=== PATIENT | male | born 1980 | race Caucasian/White ===

== ENCOUNTER 2020-06-02 22:43 | Observation (INO) ==
[2020-06-02] MEDS ORDERED: TERBUTALINE 1 MG/ML VIAL SQ ONE (22:53)
[2020-06-02] MEDS ORDERED: 0.9 % SODIUM CHLORIDE 2,000 ML IV ONE (22:53)
[2020-06-02] MEDS ORDERED: LEVOFLOXACIN 750 MG/150 ML BAG IV ONE (22:53)
[2020-06-02] MEDS ORDERED: LEVALBUTEROL 1.25 MG/3 ML AMPUL.NEB NEB ONE (22:53)
--- NOTE | 2020-06-02 22:59 | Emergency Department Note ---
SOB HPI General Chief Complaint: Shortness of Breath/Dyspnea Stated Complaint: shortness of breath Time Seen by Provider: 06/02/20 22:53 Source: patient Mode of arrival: ambulatory Limitations: no limitations History of Present Illness HPI Narrative: Narrative: 39-year-old male comes in complaining shortness of breath for the last 4 hours. He has had some shortness of breath prior to that but not as severe. He is diaphoretic and febrile with a temperature of 103.5. He got the second dose of the Covid vaccine 2 days ago-his symptoms have been building since then. In fact he actually had Covid and was diagnosed with positive test on April 08. After he recovered from the Covid he got the Covid vaccine at the end of April, the first dose. He denies any trouble with the first dose of the vaccine. He denies any trouble urinating or with a bowel movement. He did vomit several times and now has some belly pain. He also notes he finished a 5-day course of prednisone last week. He has albuterol inha lers at home which he said have not helped. He does take Ativan for anxiety/panic but has not used it in months Related Data Home Medications Medication Instructions Recorded Confirmed citalopram 10 mg tablet 30 mg PO QDAY tab 11/26/19 06/03/20 Allergies Allergy/AdvReac Type Severity Reaction Status Date / Time Amoxicillin [AMOXICILLIN] Allergy Unknown ANAPHYLAXIS Verified 11/26/19 11:20 morphine [MORPHINE] Allergy Unknown ANAPHYLAXIS Verified 11/26/19 11:20 Review of Systems ROS ROS Narrative: Narrative: [facility] Narrative Patient History Narrative: Narrative: Medical/Surgical/Family History All Active Problems (Updated 06/03/20 @ 00:48 by Emir Jung MD) Panic attack (Acute) Adverse reaction to vaccine (Acute) Fever of unknown origin (Acute) Exposure to COVID-19 virus (Acute) Medical History (Updated 06/03/20 @ 00:48 by Emir Jung MD) Exposure to COVID-19 virus Social History Smoking Status: Never smoker Exam Narrative Narrative: Narrative: Some acute distress with panicky demeanor. He is diaphoretic pressured speech tremulous. Conjunctive are clear sclerae white nonicteric. No nasal discharge or audible congestion. Oropharynx is pink and moist. Posterior pharynx is clear. Neck is supple without lymphadenopathy or thyromegaly. Heart is regular rhythm but he is tachycardic. I do not hear a murmur. Lungs are clear to auscultation bilaterally without wheezes rales rhonchi. Abdomen soft nontender nondistended. +3 radial pulse. No pedal edema. Alert oriented General Limitations: no limitations Course Vital Signs Vital signs: Vital Signs Temperature 103.5 F H 06/02/20 22:45 Pulse Rate 141 H 06/02/20 22:45 Respiratory Rate 22 06/02/20 22:45 Blood Pressure 115/82 06/02/20 22:45 Pulse Oximetry (%) 99 06/02/20 22:45 Temperature 103.5 F H 06/02/20 22:45 Pulse Rate 128 H 06/03/20 00:53 Respiratory Rate 18 06/03/20 00:53 Blood Pressure 142/81 06/03/20 00:53 Pulse Oximetry (%) 98 06/03/20 00:53 MDM MDM Narrative Medical decision making narrative: Narrative: Patient is seen and evaluated found to be diaphoretic tachycardic and febrile-likely panic compounds. Concern for possible sepsis versus vaccine reaction versus thrombosis versus cardiac disease etc. Ordered broad based work-up including laboratory chest x-ray EKG. Start IV fluids Tylenol Levaquin and get blood cultures. Initial rapid Covid test is negative as expected. Abdominal x-ray series is unrevealing; chest x-ray does not show pneumonia. ABG shows hyperventilation with alkalosis likely related to panic attack/anxiety start Ativan-pH 7.73 with a PCO2 of 15 and a PO2 of 63. Lactic acid is 3.0. D-dimer troponin and T BNP are normal He received a breathing treatment but was not feeling significantly better. I reevaluated the patient and he has calmed down a little bit but he is still very anxious. We gave him a little bit more Ativan-a total of 3 mg He was feeling better still and I discussed his labs with him. He has calmed down and is no longer hyperventilating. Do not see a cause for his fever- suspect it is a vaccine reaction as his labs are not very compatible with sepsis and fevers proximally related to his recent injection- although he does have a mild leukocytosis and lactic acidosis on ABG, his procalcitonin is normal. Urinalysis [id number] dipstick is also normal. I recommend that he come in the hospital for further monitoring and evaluation of fever of unknown origin. He was agreeable with that plan. So I discussed his case with Dr. Dennis, our hospitalist who agreed to accept the patient for observation overnight on telemetry. I will write some holding orders. We will continue Ativan and Levaquin, treat his nausea and continue fluids Lab Data Lab results reviewed: Yes I reviewed the patient's lab results. Result diagrams: 06/02/20 22:53 06/02/20 22:53 Labs: Lab Results 06/02/20 06/02/20 06/02/20 Range/Units 22:53 22:53 22:53 WBC 11.8 H (4.5-11.0) K/mcL RBC 6.01 H (4.50-5.90) M/mcL Hgb 15.8 (13.5-16.5) g/dL Hct 46.2 (41.0-55.0) % MCV 76.9 L (80.0-100.0) fL MCH 26.3 (26.0-34.0) pg MCHC 34.2 (31.0-36.0) g/dL RDW 14.1 (11.5-14.5) % Plt Count 275 (140-440) K/mcL MPV 10.6 H (7.4-10.4) fL Neut % (Auto) 70.9 (38.0-78.0) % Lymph % (Auto) 20.4 (15.0-49.0) % [place] % (Auto) 8.1 (1.0-12.0) % Eos % (Auto) 0.3 (0.0-7.0) % Baso % (Auto) 0.3 (0.0-2.0) % Lymph # (Auto) 2.40 (1.50-4.80) K/mcL [place] # (Auto) 0.95 H (0.10-0.90) K/mcL Eos # (Auto) 0.03 (0.00-0.70) K/mcL Baso # (Auto) 0.03 (0.00-0.20) K/mcL Absolute Neutrophils 8.38 H (1.80-8.00) K/mcL PT 13.5 (11.9-14.5) sec INR 1.0 (0.9-1.1) D-Dimer 0.42 (0.27-0.50) ug/mL Sodium 135 (133-145) mmol/L Potassium 3.5 (3.3-5.1) mmol/L Chloride 99 (96-108) mmol/L Carbon Dioxide 20 L (22-30) mmol/L Anion Gap 16.0 (8.0-16.0) BUN 16 (6-20) mg/dL Creatinine 0.9 (0.7-1.2) mg/dL GFR Calculation 107 Glucose 89 (70-105) mg/dL Calcium 9.3 (8.6-10.4) mg/dL Magnesium 1.7 (1.6-2.5) mg/dL Total Bilirubin 0.4 (0.1-1.0) mg/dL AST 18 (<40) U/L ALT 31 (<40) U/L Alkaline Phosphatase 97 (39-117) U/L Troponin T (<0.03) ng/mL NT-Pro-B Natriuret Pep 26.8 (<125.0) pg/mL Total Protein 7.4 (5.9-8.4) gm/dL Albumin 4.0 (3.2-5.2) gm/dL Globulin 3.4 (2.2-3.7) gm/dL Albumin/Globulin Ratio 1.2 (1.0-2.3) Lipase 34 (7-60) U/L Procalcitonin (<0.10) ng/mL 06/02/20 06/02/20 Range/Units 22:53 22:53 WBC (4.5-11.0) K/mcL RBC (4.50-5.90) M/mcL Hgb (13.5-16.5) g/dL Hct (41.0-55.0) % MCV (80.0-100.0) fL MCH (26.0-34.0) pg MCHC (31.0-36.0) g/dL RDW (11.5-14.5) % Plt Count (140-440) K/mcL MPV (7.4-10.4) fL Neut % (Auto) (38.0-78.0) % Lymph % (Auto) (15.0-49.0) % [place] % (Auto) (1.0-12.0) % Eos % (Auto) (0.0-7.0) % Baso % (Auto) (0.0-2.0) % Lymph # (Auto) (1.50-4.80) K/mcL [place] # (Auto) (0.10-0.90) K/mcL Eos # (Auto) (0.00-0.70) K/mcL Baso # (Auto) (0.00-0.20) K/mcL Absolute Neutrophils (1.80-8.00) K/mcL PT (11.9-14.5) sec INR (0.9-1.1) D-Dimer (0.27-0.50) ug/mL Sodium (133-145) mmol/L Potassium (3.3-5.1) mmol/L Chloride (96-108) mmol/L Carbon Dioxide (22-30) mmol/L Anion Gap (8.0-16.0) BUN (6-20) mg/dL Creatinine (0.7-1.2) mg/dL GFR Calculation Glucose (70-105) mg/dL Calcium (8.6-10.4) mg/dL Magnesium (1.6-2.5) mg/dL Total Bilirubin (0.1-1.0) mg/dL AST (<40) U/L ALT (<40) U/L Alkaline Phosphatase (39-117) U/L Troponin T < 0.01 (<0.03) ng/mL NT-Pro-B Natriuret Pep (<125.0) pg/mL Total Protein (5.9-8.4) gm/dL Albumin (3.2-5.2) gm/dL Globulin (2.2-3.7) gm/dL Albumin/Globulin Ratio (1.0-2.3) Lipase (7-60) U/L Procalcitonin 0.08 (<0.10) ng/mL ED POC Tests ED POC Tests: [facility] - Influenza A Negative [facility]SON - Influenza B Negative [facility]SON - SARS Antigen Negative [place] Covid test is negative Radiology Data Radiology results reviewed: Yes I reviewed the patient's radiology results. Radiology results narrative: Chest x-ray shows no acute finding-no infiltrate or pulmonary vascular prominence Abdominal x-ray series shows nonspecific bowel gas pattern. Lumbar scoliosis is noted EKG Data EKG #1: EKG attestation: Yes I reviewed and interpreted this EKG. and Yes There are no EKG findings of acute coronary syndrome EKG results narrative: EKG shows sinus tachycardia with a rate of 152. 1 PVC noted Discharge Plan Patient/Caregiver Discharge Instructions Pt seen by [employer]/PA only: No Clinical Impression: Fever of unknown origin, Panic attack Adverse reaction to vaccine Qualifiers: Encounter type: initial encounter Qualified Code(s): T50.Z95A - Adverse effect of other vaccines and biological substances, initial encounter Patient Disposition: Xfer As Inpt ([facility]) Condition: Fair Follow up with: Janes Caldwell ARNP [Primary Care Provider] - Prescriptions: No Action citalopram 10 mg tablet 30 mg PO QDAY RF: 0
[2020-06-02] MEDS ORDERED: ACETAMINOPHEN 500 MG TABLET PO ONE ×2 (23:03→23:05)
[2020-06-02] MEDS ORDERED: LORazepam 2 MG/ML VIAL IV ONE ×2 (23:28→23:51)
[2020-06-02 23:55] LABS: Basophils # (Auto) 0.03 K/mcL (0.00-0.20); Basophils % (Auto) 0.3 % (0.0-2.0); Eosinophils # (Auto) 0.03 K/mcL (0.00-0.70); Eosinophils % (Auto) 0.3 % (0.0-7.0); Hematocrit 46.2 % (41.0-55.0); Hemoglobin 15.8 g/dL (13.5-16.5); Lymphocytes % (Auto) 20.4 % (15.0-49.0); Mean Cell Volume 76.9 fL (80.0-100.0); Mean Corpuscular HGB Conc 34.2 g/dL (31.0-36.0); Mean Platelet Volume 10.6 fL (7.4-10.4); Monocytes # (Auto) 0.95 K/mcL (0.10-0.90); Monocytes % (Auto) 8.1 % (1.0-12.0); Neutrophils % (Auto) 70.9 % (38.0-78.0); Platelet Count 275 K/mcL (140-440); RBC 6.01 M/mcL (4.50-5.90); Red Cell Distribution Width 14.1 % (11.5-14.5); WBC 11.8 K/mcL (4.5-11.0)
[2020-06-03 00:07] LABS: Prothrombin Time 13.5 sec (11.9-14.5)
[2020-06-03 00:20] LABS: proBNP 26.8 pg/mL (<125.0)
[2020-06-03 00:22] LABS: ALT/SGPT 31 U/L (<40); AST/SGOT 18 U/L (<40); Albumin/Globulin Ratio 1.2 (1.0-2.3); Alkaline Phosphatase 97 U/L (39-117); Bilirubin,Total 0.4 mg/dL (0.1-1.0); Blood Urea Nitrogen 16 mg/dL (6-20); Calcium 9.3 mg/dL (8.6-10.4); Carbon Dioxide 20 mmol/L (22-30); Chloride 99 mmol/L (96-108); Globulin 3.4 gm/dL (2.2-3.7); Glomerular Filtration Rate 107; Glucose 89 mg/dL (70-105)
[2020-06-03] MEDS ORDERED: ACETAMINOPHEN 325 MG TABLET PO PRN (00:49)
[2020-06-03] MEDS ORDERED: ONDANSETRON 4 MG/2 ML VIAL IV PRN (00:49)
[2020-06-03] MEDS ORDERED: LORazepam 2 MG/ML VIAL IV PRN ×2 (00:49→00:56)
[2020-06-03] MEDS ORDERED: CITALOPRAM 20 MG TABLET PO ONE (00:55)
[2020-06-03] MEDS ORDERED: METOPROLOL TARTRATE 25 MG TABLET PO ONE (00:56)
[2020-06-03] MEDS ORDERED: LORazepam 1 MG TABLET PO PRN (00:57)
[2020-06-03] MEDS ORDERED: 0.9 % SODIUM CHLORIDE 1,000 ML IV SCH (01:00)
[2020-06-03] MEDS ORDERED: METOPROLOL TARTRATE 25 MG TABLET ONE (01:46)
--- NOTE | 2020-06-03 03:07 | XRay Report ---
CLINICAL INFORMATION: Dyspnea COMPARISON: None. TECHNIQUE: Portable FINDINGS: The heart size, mediastinum and pulmonary vessels are unremarkable. The lungs are clear. There are no effusions. The bones and soft tissues are within normal limits. IMPRESSION: Normal chest. Interpreted and Authenticated by: Stanley Lin 06/03/20
--- NOTE | 2020-06-03 03:09 | XRay Report ---
CLINICAL INFORMATION: vomiting COMPARISON: None. FINDINGS: The stool gas pattern is unremarkable. There is no free air, soft tissue mass, organomegaly or pathologic calcification. IMPRESSION: Normal abdomen Interpreted and Authenticated by: Stanley Lin 06/03/20
[2020-06-03] MEDS ORDERED: HYDROCORTISONE SOD SUCC 100 MG VIAL IV ONE (04:09)
[2020-06-03] MEDS ORDERED: PROPYLTHIOURACIL 50 MG TABLET PO SCH (04:15)
[2020-06-03] MEDS ORDERED: PROPRANOLOL 60 MG CAP.XL.24H PO SCH (04:15)
[2020-06-03 04:18] LABS: Free T3 11.2 pg/mL (2.0-4.4); Free T4 (Free Thyroxine) 3.23 ng/dL (0.93-1.70)
[2020-06-03 08:38] LABS: Amphetamine Screen,Urine None detected; Barbiturate Screen,Urine None detected; Benzodiazepines Screen,Urine None detected; Cannabinoid Screen,Urine None detected; Cocaine Screen,Urine None detected; Opiate Screen,Urine None detected; Oxycodone, Urine Screen None detected; Phencyclidine Screen,Urine None detected
== END 2020-06-03 04:00 | disposition other institution (70) ==
LOC: ED 22:43 → ICU 22:43
PROVIDERS: ADMIT Emergency Medicine; ATTEND Emergency Medicine